=== PATIENT | female | born 1980 ===

== ENCOUNTER 2016-10-20 20:09 | Inpatient (IN) ==
[2016-10-20] MEDS ORDERED: methylPREDNISolone SOD SUC 125 MG/2 ML VIAL IV STA (20:11)
--- NOTE | 2016-10-20 20:16 | Emergency Department Note ---
Arrival - Arrival Stated Complaint: angiodema Mode of Arrival: Stretcher Limitations: Physical Limitation Source: Old Records Reviewed Time Seen by Provider: 10/20/16 20:11 - History of Present Illness HPI Narrative: This 36-year-old white female presents on transfer from [facility] where she was intubated when she presented with angioedema presumed from lisinopril. 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 Immediate response of the staff there was to proceed with intubation rather than alternative therapeutic modalities and the patient was placed on the ventilator and transferred here. Circumstances are poorly detailed as to exactly what precipitated intubation; however. currently she presents on a Versed drip in no acute distress. The patient has significant comorbidities of morbid obesity, hyperlipidemia, hypertension, GERD, and depression. Onset (ago): hour(s) (onset of symptoms 3 hours ago.) Consistency: constant Severity: moderate Severity scale (1-10): 9 Review of System - Review of System 12 point system: reviewed and no additional remarkable complaints except as stated - Review of System Constitutional: Present: as per HPI Head/Ears/Nose/Throat: Present: see HPI Respiratory: Present: as per HPI Medical,Surgical,& Family Hx - Medical History Cardio: History of: Hypertension Psychological: History of: Depression Endocrine: History of: Dyslipidemia Gastrointestinal: History of: GERD Other: History of: Miscellaneous Medical Problems (morbid obesity) Exam Physical Examination: GENERAL: Morbidly obese white female sedated on the ventilator.. HEENT: Normocephalic. No trauma. Moist mucous membranes. EOMI. PERRLA. ENT notable for some mild upper lip swelling NECK: Supple. No adenopathy. CARDIAC: Regular. No murmurs. 106 heart rate CHEST: Coarse rhonchi. No respiratory distress. 100% O2 sat on ventilator ABDOMEN: Soft. Nontender. Active bowel sounds. EXTREMITIES: No trauma. Normal ROM. No pedal edema. SKIN: No diaphoresis. No rash. NEURO: Sedated and paralyzed. Course - Reevaluation(s) Reevaluation #1: Discussed with family the need for hospitalization. - Consultations Consultation #1: Discussed with Dr. Espinoza, hospitalist, who will admit for further evaluation treatment. Results - Labs CBC & BMP: 10/20/16 20:28 Labs: I reviewed the lab and noted the bump and troponins. - Impressions EKG: Sinus tachycardia at 106 with normal WI interval and QRS duration. Nonspecific ST changes. No acute injury pattern noted. - Diagnostic Findings Procedure: Chest x-ray: image reviewed by me, report reviewed by me (right upper lobe atelectasis, right perihilar confluence of vessels versus mass, ET tube in satisfactory position.) Disposition Clinical Impression: angioneurotic edema, ventilatory dependence, hypertension, morbid obesity Case discussed with: patient's family Condition: Guarded Time of Disposition: 21:17
[2016-10-20] MEDS ORDERED: ALBUTEROL 2.5 MG/3 ML NEB RESP TX SCH (20:30)
[2016-10-20] MEDS ORDERED: methylPREDNISolone SOD SUC 125 MG/2 ML VIAL ONE (20:30)
--- NOTE | 2016-10-20 20:43 | XRay Report ---
XR chest 1V portable Indication: Shortness of breath Comparison: None. Technique: Portable AP chest was performed. Findings: Heart size is normal. Endotracheal tube terminates at the sternoclavicular junction. NG tube is present which extends into the stomach. Left lung demonstrates a small focus of subsegmental atelectasis within the left cardiophrenic angle as well as suggested total atelectasis of the right upper lobe. The right mid and lower lung are clear. Bones and soft tissues demonstrate no evidence of acute pathology. Prominence of the right mediastinal contour is nonspecific. Impression: 1. Appearance of the chest suggests total atelectasis of the right upper lobe with subsegmental atelectasis of the left lower lobe. 2. Endotracheal tube placement as detailed. 3. Prominent right mediastinal contour is demonstrated. This may in part reflect vascular congestion in a supine patient. Other considerations could include mass. 10/20/2016 8:38 PM PROCEDURE INTERPRETED AT [facility] DEPARTMENT OF RADIOLOGY Final Report Signed by: Dr. Chato Keenan
[2016-10-20 20:50] LABS: INR 0.9; PT Patient Result 9.9 SECS
[2016-10-20 20:51] LABS: Apearance,Urine CLEAR (Clear); Bacteria,Urine Occasional /HPF (Few); Bilirubin,Urine Negative (Negative); Blood, Urine Moderate mg/dL (Negative); Glucose,Urine (UA) 150 mg/dL (Negative); Ketones,Urine 80 mg/dL (Negative); Mucus,Urine Occasional /LPF (Occasional); Nitrite,Urine Negative (Negative); Protein,Urine 30 MG/DL; Squamous Epithelial Cell,Urine Occasional /HPF (0-10); Urine Color Yellow (Yellow); Urine Urobilinogen < 2.0 EU/DL (0.2-1.0); WBC,Urine <1 /HPF (0-6)
[2016-10-20 20:56] LABS: ABG Base Excess -1.9 MMOL/L (-2.5-2.5); ABG HCO3 22.8 MMOL/L (20-26); ABG PCO2 46.4 MM HG (35-48); ABG PH 7.331 (7.35-7.45); ABG PO2 98.9 MM HG (80-95); ABG TCO2 21.2 MMOL/L (23-27); Pt O2 Delivery Device Ventilator
[2016-10-20 20:58] LABS: Barbiturates Screen,Urine Negative (Negative); Benzodiazepines Screen,Urine Positive (Negative); Cannabinoid Screen,Urine Positive (Negative); Opiate Screen,Urine Negative (Negative); Phencyclidine Screen,Urine Negative (Negative)
[2016-10-20 21:00] LABS: Albumin 3.2 G/DL (3.4-5.0); Bilirubin,Total 0.6 MG/DL (0.2-1.0); Calcium 8.5 MG/DL (8.5-10.1); Osmolality,Calculated 287.1 MOS/KG (273-304); Potassium 3.7 MMOL/L (3.5-5.1); Total Protein 7.4 G/DL (6.4-8.3)
[2016-10-20 21:01] LABS: Troponin I Only 0.189 NG/ML (0.00-0.045)
--- NOTE | 2016-10-20 21:17 | Hospitalist History & Physical ---
Assessment and Plan (1) Angioedema Status: Acute Assessment and plan: The patient's mental the hospital for airway protection. She will be maintained intubated overnight and we'll obtain pulmonary consultation the morning to consider extubation. The patient's hypertension will be treated with Catapres patch until she is able to take pills again. Current Visit: Yes Qualifiers: Encounter type: initial encounter Qualified Code(s): T78.3XXA - Angioneurotic edema, initial encounter (2) Hypertension Status: Acute Current Visit: Yes Qualifiers: Hypertension type: essential hypertension Qualified Code(s): I10 - Essential (primary) hypertension History of Present Illness Chief complaint: swelling of tongue and lips History of present illness: Ms. Bird is a 36 year old female history of hypothyroidism and essential hypertension. The patient recently started taking lisinopril. On the date of admission the hospital the patient had developed swelling of lips and tongue. She presented to [facility] and was intubated to protect airway. The patient was transferred to [facility] for further evaluation and is now admitted to the intensive care unit. The patient is awake alert and anxious. The patient is intubated and unable to give further history. I reviewed the medical record from [facility]. Allergies Allergy/AdvReac Type Severity Reaction Status Date / Time lisinopril Allergy Severe ANAPHYLAXIS Verified 10/20/16 22:28 Medical,Surgical,& Family Hx - Medical History Cardio: History of: Hypertension Psychological: History of: Depression Endocrine: History of: Dyslipidemia Gastrointestinal: History of: GERD Other: History of: Miscellaneous Medical Problems (morbid obesity) - Family History Family History: Reports;: Family Hypertension - Social History Marital Status: Lives With:: Spouse Functional capacity: independent ambulation 12 point system: reviewed and no additional remarkable complaints except as stated Exam - Constitutional Exam: Constitutional System: Mild distress. No tremulousness. The patient is orally intubated and mechanically ventilated. She is moving all extremities Head: Normocephalic, atraumatic. Ears, Nose and Throat System: No evidence of Otitis or Mastoiditis. No epistaxis or discharge. She has moderate swelling of lips and tongue Eyes System: Pupils equal, round, and reactive. Extraocular muscles intact. Neck: Supple, without adenopathy, No jugular venous distention. No thyromegaly , neck mass, or prior surgery apparent. Respiratory System: Chest clear to auscultation. Cardiovascular System: Heart with regular rate and rhythm. No murmur. GI System: Abdomen soft, nontender. Normoactive bowel sounds present. Musculoskeletal System: limbs with no pedal edema. Full distal pulses. Neurological System: No discernable sensory deficit. No aphasia Psychiatric System: Conversation is not possible due to intubation Results - Labs CBC & BMP: 10/20/16 20:28 10/20/16 20:28 Lab Results: I have reviewed the past 24 hour labs
[2016-10-20 21:23] LABS: Basophils % 0.1 % (0.0-0.8); Hematocrit 31.8 VOL% (35.7-47.0); Hemoglobin 10.6 GM/DL (12.0-16.0); Immature Granulocytes % 0.5 %; Immature Granulocytes Absolute 0.06 #; Lymphocytes # 0.4 10*3/uL (1.4-4.0); Lymphocytes % 3.3 % (21.3-54.2); Mean Corpuscular HGB Conc 33.3 GM/DL (32-36); Mean Corpuscular Hemoglobin 29 PG (27-34); Mean Corpuscular Volume 88.3 FL (87-102); Mean Platelet Volume 10.2 FL (9.6-12.0); Monocytes # 0.1 10*3/uL (0.11-0.8); Monocytes % 0.4 % (1.7-12.7); Neutrophils # 12.7 10*3/uL (1.4-7.4); Neutrophils % 95.7 % (38.7-73.9); Platelet Count 387 10*3/uL (130-400); Red Cell Distribution Width 12.5 % (9.3-17.3); White Blood Count 13.3 10*3/uL (4.5-13.71)
--- NOTE | 2016-10-20 21:46 | XRay Report ---
XR chest 1V portable Indication: Right upper lobe atelectasis. Comparison: Chest x-ray 10/20/2016; 2010 hrs. Technique: Portable AP chest was performed. Findings: Some improvement in aeration of the right hilar region is demonstrated with continued total atelectasis of the right upper lobe and subsegmental atelectasis within the left lower lobe. Endotracheal tube position is stable. NG tube is been removed. Chest is otherwise stable. Impression: 1. Improved appearance of the right hilar and paratracheal region. 2. No change in the suggested total atelectasis of the right upper lobe or subsegmental atelectasis left lower lobe. 10/20/2016 9:42 PM PROCEDURE INTERPRETED AT [facility] DEPARTMENT OF RADIOLOGY Final Report Signed by: Dr. Chato Keenan
[2016-10-20] MEDS ORDERED: MORPHINE 2 MG/1 ML SYRINGE IV PRN (22:30)
[2016-10-20] MEDS ORDERED: ONDANSETRON 4 MG/2 ML VIAL IV PRN (22:30)
[2016-10-20] MEDS: PROPOFOL 1,000 MG/100 ML BOTTLE IV SCH ×2 (22:51→22:52)
[2016-10-20] MEDS ORDERED: cloNIDine 0.3 MG/24 HR PATCH TRANSDERM SCH (23:00)
[2016-10-20] MEDS: SODIUM CHLORIDE 0.9% 1,000 ML IV SCH (23:30)
[2016-10-20] MEDS: FAMOTIDINE 20 MG/2 ML VIAL IV SCH (23:30)
[2016-10-20] MEDS: ENOXAPARIN 40 MG/0.4 ML SYRINGE SUBCUT SCH (23:31)
[2016-10-21] MEDS ORDERED: diphenhydrAMINE 50 MG/1 ML VIAL IV SCH
[2016-10-21] MEDS ORDERED: methylPREDNISolone SOD SUC 40 MG/1 ML VIAL ONE (00:12)
[2016-10-21] MEDS: PROPOFOL 1,000 MG/100 ML BOTTLE IV SCH ×8 (01:25→15:01)
[2016-10-21 01:29] LABS: Band Neutrophils 2 % (0-10); Lymphocytes 3 % (20-55); Segmented Neutrophils 94 % (50-85); Total Cells Counted 100
[2016-10-21 01:30] LABS: Platelet Estimate Normal
[2016-10-21 03:38] LABS: Allen Test Positive; Pt O2 Delivery Device Ventilator
[2016-10-21 03:39] LABS: ABG Base Excess 1.7 MMOL/L (-2.5-2.5); ABG HCO3 26.2 MMOL/L (20-26); ABG Oxygen Saturation 98.7 % (95-100); ABG PCO2 40.7 MM HG (35-48); ABG PH 7.426 (7.35-7.45); ABG PO2 154.8 MM HG (80-95); ABG TCO2 27.4 MMOL/L (23-27)
[2016-10-21] MEDS ORDERED: methylPREDNISolone SOD SUC 40 MG/1 ML VIAL IV SCH (04:30)
[2016-10-21 04:53] LABS: Basophils % 0.1 % (0.0-0.8); Hematocrit 34.6 VOL% (35.7-47.0); Hemoglobin 11.6 GM/DL (12.0-16.0); Immature Granulocytes % 0.6 %; Immature Granulocytes Absolute 0.07 #; Lymphocytes # 0.5 10*3/uL (1.4-4.0); Lymphocytes % 4.3 % (21.3-54.2); Mean Corpuscular HGB Conc 33.5 GM/DL (32-36); Mean Corpuscular Hemoglobin 29 PG (27-34); Mean Corpuscular Volume 87.8 FL (87-102); Mean Platelet Volume 10.8 FL (9.6-12.0); Monocytes # 0.1 10*3/uL (0.11-0.8); Monocytes % 0.8 % (1.7-12.7); Neutrophils # 11.9 10*3/uL (1.4-7.4); Neutrophils % 94.2 % (38.7-73.9); Platelet Count 366 10*3/uL (130-400); Red Blood Count 3.94 10*6/uL (3.8-5.5); Red Cell Distribution Width 12.6 % (9.3-17.3); White Blood Count 12.6 10*3/uL (4.5-13.71)
[2016-10-21 05:13] LABS: Calcium 8.5 MG/DL (8.5-10.1); Magnesium 2.6 MG/DL (1.8-2.4); Osmolality,Calculated 287.1 MOS/KG (273-304); Potassium 3.8 MMOL/L (3.5-5.1)
[2016-10-21 05:22] LABS: Troponin I Only 0.939 NG/ML (0.00-0.045)
[2016-10-21 05:32] LABS: Band Neutrophils 1 % (0-10); Lymphocytes 3 % (20-55); Platelet Estimate Normal; Segmented Neutrophils 96 % (50-85); Total Cells Counted 100
--- NOTE | 2016-10-21 07:26 | EKG Report ---
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
--- NOTE | 2016-10-21 08:25 | EKG Report ---
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
--- NOTE | 2016-10-21 08:50 | Hospitalist Progress Note ---
Assessment and Plan (1) Anemia Status: Chronic Assessment and plan: Patient has the anemia seems to be chronic unable to get history at present will repeat hematocrit and anemia profile Current Visit: Yes (2) Angioedema Status: Acute Assessment and plan: Likely due to BRIE inhibitor. Pulmonary on board and will follow with recommendations continue steroids for now along with the antihistamine Current Visit: Yes Qualifiers: Encounter type: initial encounter Qualified Code(s): T78.3XXA - Angioneurotic edema, initial encounter (3) Hypertension Status: Chronic Assessment and plan: Controlled Current Visit: Yes Qualifiers: Hypertension type: essential hypertension Qualified Code(s): I10 - Essential (primary) hypertension Hospitalist: Subjective Interval history: Ms. Bird is a 36 year old female history of hypothyroidism and essential hypertension. She had been on lisinopril and developed angioedema with swelling of the lips and tongue. She was seen at the [facility] admission intubated and transferred here. She still intubated pulmonary has been consulted. Patient is on sedation but workup during the exam. She is on an SIMV mode with a 30% FiO2 Exam - Constitutional Vitals: Period Temp Pulse Resp BP Sys/Gardner Pulse Ox Last 24 Hr 97.1 F-98.1 F 75-103 12-25 104-141/48-96 98-100 General appearance: no acute distress - Head Head exam: Present: normal inspection, normocephalic - Eye Eye exam: Present: EOMI Pupils: Present: NEY - Respiratory Respiratory exam: Present: clear to auscultation bilaterally (equal air entry bilaterally) - Cardiovascular Cardiovascular exam: Present: regular rate and rhythm - GI/Abdominal GI/Abdominal exam: Present: normal bowel sounds, soft. Absent: tenderness - Extremities Exam Extremities exam: Present: normal inspection. Absent: edema Results - Labs CBC & BMP: 10/21/16 03:41 10/21/16 03:41 Specialty Discharge - Follow Up or Referrals - Discharge Medications No Action Levothyroxine Tab [Synthroid Tab] 100 mcg PO DAILY@0700 Lovastatin 40 mg PO QPM Norgestimate-Ethinyl Estradiol [Tri-Sprintec Tablet] 1 each PO DAILY Lisinopril/Hydrochlorothiazide [Lisinopril-Hctz 10-12.5 mg Tab] 1 each PO DAILY Fluoxetine HCl [Prozac] 40 mg PO DAILY
[2016-10-21] MEDS: FAMOTIDINE 20 MG/2 ML VIAL IV SCH ×2 (10:03→21:38)
--- NOTE | 2016-10-21 10:16 | XRay Report ---
History: Patient on ventilator Date: 10/21/2016 Study: Chest x-ray AP portable Comparison exam: 10/20/2016 The endotracheal tube is in satisfactory position. The nasogastric tube enters the stomach. The cardiac silhouette is borderline prominent. The atelectatic change in the right upper lobe has nearly resolved. There is some mild hazy edema/infiltrate in the lower lungs, left more than right. There is probable mild layering pleural effusion on the left. Shallow breath. The osseous structures are unchanged. Impression: Satisfactory positioning of the tubes. Nearly resolved right upper lobe atelectasis. Mild increased bibasilar edema/infiltrate PROCEDURE INTERPRETED AT [facility] DEPARTMENT OF RADIOLOGY Final Report Signed by: Dr. Shayla Myers
[2016-10-21] MEDS: SODIUM CHLORIDE 0.9% 1,000 ML IV SCH (11:14)
--- NOTE | 2016-10-21 12:56 | Pulmonology Consult Note ---
Assessment and Plan (1) Angioedema Status: Acute Assessment and plan: Patient with angioedema likely 2/2 ACEI use. Regarding whether she is ready to be extubated, this would be better assessed by ENT doing a scope of her posterior pharynx and vocal cords to look for swelling. We can also have RT check for a cuff leak. Would continue to treat with steroids and H2 blockers for now. If ENT not available today, will reasses tomorrow Current Visit: Yes Qualifiers: Encounter type: initial encounter Qualified Code(s): T78.3XXA - Angioneurotic edema, initial encounter History of Present Illness Chief complaint: angioedema History of present illness: Ms. Bird is a 36 year old female Patient intubated so history given by her mother. She states that patients lip started swelling last week but thought it was secondary to trauma. Then over the last 48 hours, swelling spread to mouth and face, and then last night she started having trouble breathing and throat felt tight and scratchy. She presented to an outside hospital where she was intubated. I have been consulted to assess for extubation readiness Home Medications Medication Instructions Recorded Confirmed Type Fluoxetine HCl [Prozac] 40 mg PO DAILY 10/21/16 10/21/16 History Levothyroxine Tab [Synthroid Tab] 100 mcg PO DAILY@0700 10/21/16 10/21/16 History Lisinopril/Hydrochlorothiazide 1 each PO DAILY 10/21/16 10/21/16 History [Lisinopril-Hctz 10-12.5 mg Tab] Lovastatin 40 mg PO QPM 10/21/16 10/21/16 History Norgestimate-Ethinyl Estradiol 1 each PO DAILY 10/21/16 10/21/16 History [Tri-Sprintec Tablet] Allergies Allergy/AdvReac Type Severity Reaction Status Date / Time lisinopril Allergy Severe ANAPHYLAXIS Verified 10/20/16 22:28 ROS unobtainable: due to endotracheal tube Exam (Pulmonay) H&P - Constitutional Vitals: Period Temp Pulse Resp BP Sys/Gardner Pulse Ox Last 24 Hr 97.1 F-98.1 F 75-103 12-25 104-141/48-96 98-100 General appearance: normal weight, no acute distress - Head Head exam: Present: normal inspection - ENT ENT exam: Present: normal exam (no lip or tongue swelling appreciated) - Respiratory Respiratory exam: Present: clear to auscultation bilaterally. Absent: accessory muscle use, stridor, wheezes - Cardiovascular Cardiovascular exam: Present: regular rate and rhythm Medical,Surgical,& Family Hx - Medical History Cardio: History of: Hypertension Psychological: History of: Anxiety Disorders, Depression Neurology: History of: Migraine Endocrine: History of: Dyslipidemia, Thyroid Disorder Respiratory: No history of: Asthma, COPD, Intubation Gastrointestinal: History of: GERD Other: History of: Anaphylaxis, Miscellaneous Medical Problems (morbid obesity) - Surgical History Thoracic Surgeries: Patient denies;: Organ Transplant, Lobectomy Neurologic Surgeries: Patient denies: Neurologic Surgery HEENT Surgeries: Surgical HX of: Tonsilectomy & Adenoidectomy Abdominal Surgeries: Patient denies: Abdominal Surgery Reproductive Surgeries: Patient denies;: Genitourinary Surgery, Gynecologic Surgery - Family History Family History: Reports;: Family Cancer (great grandparents), Family Diabetes ( grandfather), Family Heart Disease (pts father heart attack at 57, grandmother heart attack at 65 years old), Family Hypertension Denies;: Family Psychiatric Problems, Family Stroke - Social History Smoking Status: Current every day smoker Frequency of Alcohol Use: None Type of Drug Use: None Results - Labs CBC & BMP: 10/21/16 03:41 10/21/16 03:41 Lab Results: I have reviewed the past 24 hour labs Specialty Discharge - Follow Up or Referrals - Discharge Medications No Action Levothyroxine Tab [Synthroid Tab] 100 mcg PO DAILY@0700 Lovastatin 40 mg PO QPM Norgestimate-Ethinyl Estradiol [Tri-Sprintec Tablet] 1 each PO DAILY Lisinopril/Hydrochlorothiazide [Lisinopril-Hctz 10-12.5 mg Tab] 1 each PO DAILY Fluoxetine HCl [Prozac] 40 mg PO DAILY
[2016-10-21] MEDS: ENOXAPARIN 40 MG/0.4 ML SYRINGE SUBCUT SCH (21:38)
[2016-10-22] MEDS: SODIUM CHLORIDE 0.9% 1,000 ML IV SCH (02:13)
[2016-10-22 04:53] LABS: Basophils % 0.2 % (0.0-0.8); Eosinophils % 0.1 % (0.00-10.9); Hematocrit 32.7 VOL% (35.7-47.0); Hemoglobin 10.3 GM/DL (12.0-16.0); Immature Granulocytes % 0.4 %; Immature Granulocytes Absolute 0.04 #; Lymphocytes # 2.5 10*3/uL (1.4-4.0); Lymphocytes % 24.4 % (21.3-54.2); Mean Corpuscular HGB Conc 31.5 GM/DL (32-36); Mean Corpuscular Hemoglobin 29 PG (27-34); Mean Corpuscular Volume 90.6 FL (87-102); Mean Platelet Volume 10.6 FL (9.6-12.0); Monocytes # 0.4 10*3/uL (0.11-0.8); Monocytes % 4.3 % (1.7-12.7); Neutrophils # 7.3 10*3/uL (1.4-7.4); Neutrophils % 70.6 % (38.7-73.9); Platelet Count 327 10*3/uL (130-400); Red Blood Count 3.61 10*6/uL (3.8-5.5); Red Cell Distribution Width 12.9 % (9.3-17.3); White Blood Count 10.3 10*3/uL (4.5-13.71)
[2016-10-22 05:25] LABS: Osmolality,Calculated 293.3 MOS/KG (273-304); Potassium 3.6 MMOL/L (3.5-5.1)
[2016-10-22 05:51] LABS: Folate 5.3 NG/ML (5.4-24.0); Vitamin B12 242 PG/ML (211-911)
--- NOTE | 2016-10-22 07:43 | Event Note ---
Patient with angioedema from ACEI. Extubated yesterday without incident. Facial swelling appears to have gone down completely. Patient can at least be transferred out of the ICU and can probably DC home today if primary care has no other issues they are addressing.
[2016-10-22] MEDS ORDERED: DEXTROSE 5% 1,000 ML IV SCH (08:00)
[2016-10-22 09:05] LABS: Hemoglobin A1 (Alkaline) 97.8 % (96.5-98.5); Hemoglobin A2 (Alkaline) 2.2 % (1.5-3.5)
[2016-10-22] MEDS: FAMOTIDINE 20 MG/2 ML VIAL IV SCH (09:34)
[2016-10-22] MEDS ORDERED: PHENOL 1.4% THROAT SPRAY 177 ML BOTTLE PO PRN (09:54)
[2016-10-22 10:57] LABS: Sedimentation Rate-Westergren 66 MM/HR (0-20)
[2016-10-22] MEDS ORDERED: FOLIC ACID 1 MG TABLET PO SCH (11:00)
[2016-10-22 11:49] VITALS: BP 124/64
--- NOTE | 2016-10-22 12:11 | Discharge Summary ---
<Carly London - Last Filed: 10/22/16 12:45> Hospital Course - Hospital Course Hospital Course: Ms. Bird was admitted on 10/20 with angioedema. She was intubated for airway protection. Her angioedema was due to lisinopril. Pulmonary was consulted and saw on 10/21. ENT was asked to see to scope her posterior pharynx and vocal cords to assess for swelling. She was continued on steroids and H2 blockers. She was able to be extubated on 10/21/ without incident. Given her improvement in angioedema, and maintaining oxygen saturations well, she will be discharged home today. She has been advised to no longer take BRIE inhibitors. She will be discharged home on appropriate medications. - Time spent with patient Time with patient DS: Greater than 30 minutes (due to plan, doc and med rec.) Diagnosis - Discharge Diagnosis (1) Angioedema Status: Acute (2) Hypertension Status: Chronic Specialty Discharge - Follow Up or Referrals - Discharge Medications New Folic Acid Tab 1 mg PO DAILY tablet Phenol 1.4% Throat [place] [Chloraseptic [place]] 5 spray PO Q2H PRN #0 bottle PRN Reason: Sore Throat Continue Levothyroxine Tab [Synthroid Tab] 100 mcg PO DAILY@0700 Lovastatin 40 mg PO QPM Norgestimate-Ethinyl Estradiol [Tri-Sprintec Tablet] 1 each PO DAILY Fluoxetine HCl [Prozac] 40 mg PO DAILY Discontinued Lisinopril/Hydrochlorothiazide [Lisinopril-Hctz 10-12.5 mg Tab] 1 each PO DAILY Discharge Plan - Discharge Data Disposition: Disch To Home/Self Care - Discharge Medications New Folic Acid Tab 1 mg PO DAILY tablet Phenol 1.4% Throat [place] [Chloraseptic [place]] 5 spray PO Q2H PRN #0 bottle PRN Reason: Sore Throat Continue Levothyroxine Tab [Synthroid Tab] 100 mcg PO DAILY@0700 Lovastatin 40 mg PO QPM Norgestimate-Ethinyl Estradiol [Tri-Sprintec Tablet] 1 each PO DAILY Fluoxetine HCl [Prozac] 40 mg PO DAILY Discontinued Lisinopril/Hydrochlorothiazide [Lisinopril-Hctz 10-12.5 mg Tab] 1 each PO DAILY - Follow Up or Referral - Forms/Instructions Instructions: Angioedema (GEN) Exam - Constitutional Vitals: Period Temp Pulse Resp BP Sys/Gardner Pulse Ox Last 24 Hr 97.9 F-98.8 F 57-81 12-26 100-127/52-75 94-100 Discharge Results Procedures and tests throughout hospitalization: Pending Orders 10/22/16 04:05 MRSA Surveillence, Inf Control Routine 10/22/16 04:07 Anemia Profile IN AM CBC [Comp Blood Count Auto Diff] IN AM Labs on day of discharge: Labs from last 24 hours 10/22/16 10/22/16 10/22/16 10:40 04:07 04:07 WBC RBC Hgb Hct MCV MCH MCHC RDW Plt Count MPV Neut % (Auto) Lymph % (Auto) [place] % (Auto) Eos % (Auto) Baso % (Auto) Neut # (Auto) Lymph # (Auto) [place] # (Auto) Eos # (Auto) Baso # (Auto) Immature Gran % Nucleated RBC % Immature Gran # Nucleated RBCs # Anemia Panel Interp ESR Westergren Absolute Retic Percent Retic Retic Hgb Equivalent Hemoglobin A1 97.8 Hemoglobin A2 2.2 Hgb ELP Interp See comment Sodium 145 Potassium Chloride Carbon Dioxide Anion Gap BUN Creatinine GFR Calculation BUN/Creatinine Ratio Glucose Calculated Osmolality Calcium Ferritin 44.3 Vitamin B12 242 Folate 5.3 L LIZETH (IgG-AHG) LIZETH, Polyspecific 10/22/16 10/22/16 10/22/16 04:07 04:07 04:00 WBC 10.3 RBC 3.61 L Hgb 10.3 L Hct 32.7 L MCV 90.6 MCH 29 MCHC 31.5 L RDW 12.9 Plt Count 327 MPV 10.6 Neut % (Auto) 70.6 Lymph % (Auto) 24.4 [place] % (Auto) 4.3 Eos % (Auto) 0.1 Baso % (Auto) 0.2 Neut # (Auto) 7.3 Lymph # (Auto) 2.5 [place] # (Auto) 0.4 Eos # (Auto) 0.0 Baso # (Auto) 0.0 Immature Gran % 0.4 Nucleated RBC % 0.0 Immature Gran # 0.04 Nucleated RBCs # 0.00 Anemia Panel Interp Pending ESR Westergren 66 H Absolute Retic 0.0 Percent Retic 1.4 Retic Hgb Equivalent 32.2 Hemoglobin A1 Hemoglobin A2 Hgb ELP Interp Sodium 148 H Potassium 3.6 Chloride 111 H Carbon Dioxide 28 Anion Gap 12.6 BUN 13 Creatinine 0.90 GFR Calculation 105 BUN/Creatinine Ratio 14.00 Glucose 99 Calculated Osmolality 293.3 Calcium 8.0 L Ferritin Vitamin B12 Folate LIZETH (IgG-AHG) Negative LIZETH, Polyspecific Negative DS: Provider Date of admission: 10/20/16 21:11 Primary care physician: . No PCP Attending physician on admission: Cosme Zavala M.D. Consults: 10/20/16 22:30 Consult to Physician [CONS] Routine Comment: angioedema Consulting Provider: Holly Stewart Discharging clinician: Carly London NP Expected date of discharge: 10/22/16 <Cosme Zavala - Last Filed: 10/22/16 14:01> Hospital Course - Hospital Course Hospital Course: Patient has history of hypertension for which she was taking lisinopril. Her goal blood pressure is less than 140/90. She was given clonidine patch while she was here. I have asked her to watch her blood pressure at home and the crit followed with her primary care physician for long-term management. She needs to avoid BRIE inhibitor or angiotensin receptor yann due to angioedema. Also noted to have anemia noted folic acid deficiency started on folic acid 1 mg daily which she will be getting [id number]. Has to follow up with the primary care for follow-up and management of anemia and hypertension Diagnosis - Discharge Diagnosis (1) Anemia Status: Chronic (2) Angioedema Status: Acute (3) Hypertension Status: Chronic Discharge Plan - Discharge Data Condition at Discharge: Stable Discharge Diet: low salt diet Activity: resume usual activities as tolerated
== END 2016-10-22 14:00 | disposition home or self-care (01) | DRG 916 ==
LOC: N.ED 20:09 → N.EDINP 21:11 → N.ICU 21:53
PROVIDERS: ADMIT Internal Medicine; ATTEND Internal Medicine